=== PATIENT | female | born 1980 | race Caucasian/White ===

== ENCOUNTER → 2017-12-09 06:42 | Outpatient (CLI) | payer OTHER, SELFPAY ==
--- NOTE | 2017-12-09 06:46 | CT_ITS ---
STUDY: CT ABDOMEN WITH CONTRAST REASON FOR EXAM: Female, 37 years old. Abdominal mass. Possible hernia. RADIATION DOSAGE (If Supplied By Facility): CTDIvol = ( 9.32 ) mGy, DLP = ( 299.67 ) mGycm TECHNIQUE: Transaxial images were obtained post I.V. administration of 100mL ml of Isovue 300 contrast, and with oral contrast. Sagittal and coronal images were reconstructed. Individualized dose optimization techniques were used for this CT. COMPARISON: None. FINDINGS: The visualized lung bases are unremarkable. The visualized portions of the heart are within normal limits. Normal liver. Normal gallbladder and extrahepatic biliary system. Normal spleen. Normal pancreas. Normal bilateral adrenal glands. Normal right kidney. Normal left kidney. There is a small hiatal hernia. Normal small intestine. Normal colon. The appendix is visualized and appears normal. Normal abdominal aorta. Normal inferior vena cava. Normal retroperitoneum. There is a small umbilical hernia containing fat. Grade 1 anterior listhesis of L5 on S1 with spondylolysis of the pars intraarticularis of the L5 vertebrae. CT/Abdomen WITH IV Contrast IMPRESSION: Small umbilical hernia fat. Electronically Signed: Claus Nicole MD at 9:00 EST Tel [phone], Service support ,
== END ==
PROVIDERS: Family Provider Internal Medicine; PCP Internal Medicine; Visit Provider Internal Medicine
DX: R19.00 Intra-abdominal and pelvic swelling, mass and lump, unspecified site (principal)
CPT/HCPCS: 74160; Q9967

== ENCOUNTER → 2017-12-12 08:35 | Outpatient (CLI) | payer OTHER, SELFPAY ==
[2017-12-10 15:08] VITALS: BP 148/91; BMI 24.7
--- NOTE | 2017-12-12 08:58 | US_ITS ---
STUDY: ABDOMINAL ULTRASOUND - RIGHT UPPER QUADRANT REASON FOR VISIT: Female, 37 years old. Right upper quadrant pain. TECHNIQUE: Ultrasound evaluation of the right upper quadrant was performed with real-time and static loya-scale imaging. TECHNICAL QUALITY: Adequate. COMPARISON: Comparison is made with prior CT scan and abdomen dated December 09, 2017. FINDINGS: Liver: The liver measures 14.2 cm. There is increased echogenicity consistent with fatty infiltration. The bile ducts are within normal limits. There is hepatic color flow. The direction of portal flow is hepatopetal. There is no demonstrated mass lesion. Gallbladder: Normal distended gallbladder. The gallbladder wall measures 1.0 mm. There is a negative sonographic Hartman's sign. There is no pericholecystic fluid. There are no gallstones. Common Bile Duct (C.B.D.): The common bile duct measures 4.3 mm. Pancreas: Normal size of the head, body and tail of the pancreas. There is normal echogenicity of the pancreas. There is no demonstrated pancreatic mass or cyst. Right Kidney: Normal size of the right kidney. The right kidney measures 11.3 cm x 4.6 cm x 4.0 cm. Normal renal cortex. The right cortex measures 1.2 cm. There is no demonstrated renal mass or cyst. There is no right hydronephrosis. US/Abdomen Limited IMPRESSION: Fatty infiltration of the liver. Electronically Signed: Claus Nicole MD at 11:34 EST Tel [phone], Service support ,
== END ==
PROVIDERS: Family Provider Internal Medicine; PCP Internal Medicine; Visit Provider Surgery
DX: R10.13 Epigastric pain (principal)
CPT/HCPCS: 76705

== ENCOUNTER → 2017-12-16 09:58 | Outpatient (CLI) | payer OTHER, SELFPAY ==
[2017-12-10 15:08] VITALS: BP 148/91; BMI 24.7
--- NOTE | 2017-12-16 09:59 | NM_ITS ---
CLINICAL: 37-year-old female with reported history of postprandial right upper quadrant abdominal pain. RADIONUCLIDE HEPATOBILIARY SCINTIGRAPHY COMPARISON: Abdominal ultrasound report 12/12/2017, CT of the abdomen report 12/09/2017 FINDINGS: Following the intravenous administration of 6.1 mCi of 99m Tc Mebrofenin, hepatobiliary images reveal: 1. Relatively prompt and homogeneous radiopharmaceutical concentration is noted by a normal sized liver. No parenchymal defects are identified. 2. Gallbladder activity is identified at 15 minutes post radiopharmaceutical administration. 3. Small intestinal tract is observed at 45 minutes following tracer injection. 4. Washout of the radiopharmaceutical by the hepatic parenchyma appears qualitatively normal. Cholecystokinin (0.02 ug/kg) was administered intravenously over a 30-minute period. The post CCK gallbladder ejection fraction calculated at 20 minutes following Cholecystokinin administration was noted to be 45.0 % (normal greater than 35%). During 30 minutes of post CCK imaging, there is no scintigraphic evidence of reflux of the radiotracer into the common hepatic duct or refilling of the gallbladder. NM/Hepatobilliary Img w/Pharm Int IMPRESSION: 1. NORMAL 99m Tc Mebrofenin hepatobiliary imaging examination with Cholecystokinin. A. A gallbladder ejection fraction calculated to be greater than 35% following the administration of Cholecystokinin makes the probability of functional hepatobiliary disease (gallbladder and/or sphincter of Oddi dyskinesia) and/or organic hepatobiliary disease (chronic acalculous cholecystitis and/or cystic duct syndrome) to be low. (Arina Rubio et al, Journal of Nuclear Medicine 32:1695, 1990). Electronically Signed: Dillon Plunkett DO at 10:14 EST Tel , Service support ,
== END ==
PROVIDERS: Family Provider Internal Medicine; PCP Internal Medicine; Visit Provider Surgery
DX: R10.11 Right upper quadrant pain (principal)
CPT/HCPCS: 78227; A9537